=== PATIENT | male | born 1945 | race Caucasian/White ===

== ENCOUNTER 2023-09-28 17:54 | Inpatient (IN) | payer MEDICARE, OTHER ==
[~2023-09-28] VITALS: Ht 175.3 cm; Wt 67.1 kg
[2023-09-28 19:37] LABS: BASOPHILS % (AUTO) 0.2 % (0.0-2.0); HEMATOCRIT 45 % (39-51); HEMOGLOBIN 15.2 g/dL (13.5-17.5); LYMPHOCYTES # (AUTO) 0.7 K/uL (0.8-4.8); MEAN CORPUSCULAR HEMOGLOBIN 35 PG (26.0-33.0); MEAN CORPUSCULAR HGB CONC 34 g/dl (31.0-36.0); MEAN CORPUSCULAR VOLUME 103 fL (80-96); MONOCYTES # (AUTO) 0.3 K/uL (0.1-1.30); MONOCYTES % (AUTO) 2.8 % (2.0-12.0); NEUTROPHILS # (AUTO) 8.4 K/uL (1.8-8.9); PLATELET COUNT (AUTO) 217 K/uL (150-450); RED BLOOD CELL COUNT(AUTO) 4.38 MIL/uL (4.5-6.0); WHITE BLOOD COUNT (AUTO) 9.3 K/uL (4.3-11.0)
[2023-09-28 19:46] LABS: CARBON DIOXIDE 20 mmol/L (21-32); CHLORIDE 95 mmol/L (98-107); CREATININE 1.4 mg/dL (0.6-1.3); GLUCOSE 174 mg/dL (74-106); POTASSIUM 3.1 mmol/L (3.5-5.1); SODIUM SERUM 136 mmol/L (136-145); UREA NITROGEN, BLOOD 10 mg/dL (7-18)
[2023-09-28 20:01] LABS: CALCIUM, SERUM 9.9 mg/dL (8.5-10.1); NT-PRO BNP 67 pg/mL (0-125)
[2023-09-28] MEDS ORDERED: POTASSIUM CHLORIDE 20 MEQ POWDER PACKET ONE (20:43)
[2023-09-28] MEDS: POTASSIUM CHLORIDE 20 MEQ TAB.PRT.SR PO ONE (20:44)
[2023-09-28] MEDS: IV NS 0.9% 1,000 ML BAG IV ONE (20:44)
[2023-09-28] MEDS ORDERED: IV NS 0.9% 250 ML IV ONE (21:45)
[2023-09-28] MEDS ORDERED: IOHEXOL-350 100 ML VIAL IV ONE (21:45)
[2023-09-28] MEDS ORDERED: ACETAMINOPHEN 325 MG TABLET PO PRN (22:00)
[2023-09-28] MEDS ORDERED: MORPHINE SULFATE INJ 2 MG/ML DISP.SYRIN IV PRN (22:00)
[2023-09-28] MEDS ORDERED: MAGNESIUM HYDROXIDE 30 ML UDC PO PRN (22:00)
[2023-09-28] MEDS ORDERED: ONDANSETRON HCL/PF 4 MG/2 ML VIAL IV PRN (22:00)
[2023-09-28] MEDS ORDERED: Z GUARD REMEDY 4 OZ OINT TP PRN (22:00)
[2023-09-28] MEDS ORDERED: MAG HYDROX/AL HYDROX/SIMETH 30 ML UDC PO PRN (22:00)
[2023-09-28] MEDS ORDERED: ONDANSETRON HCL/PF 4 MG/2 ML VIAL IVP PRN (22:00)
[2023-09-28] MEDS ORDERED: DEXTROSE 50%-WATER 50 ML DISP.SYRIN IV PRN (23:00)
[2023-09-28] MEDS: ENOXAPARIN SODIUM 40 MG/0.4 ML DISP.SYRIN SQ SCH (23:11)
[2023-09-29] VITALS: BP 150/88; TEMP 98.8; O2SAT 97
[2023-09-29] MEDS: LORAZEPAM 1 MG TABLET PO PRN (00:04)
[2023-09-29 04:00] VITALS: BP 126/79; TEMP 99.1; O2SAT 93
[2023-09-29 06:29] LABS: BASOPHILS % (AUTO) 0.1 % (0.0-2.0); HEMATOCRIT 39 % (39-51); HEMOGLOBIN 13.6 g/dL (13.5-17.5); LYMPHOCYTES # (AUTO) 1.5 K/uL (0.8-4.8); LYMPHOCYTES % (AUTO) 23.4 % (20.0-44.0); MEAN CORPUSCULAR HEMOGLOBIN 36 PG (26.0-33.0); MEAN CORPUSCULAR HGB CONC 35 g/dl (31.0-36.0); MEAN CORPUSCULAR VOLUME 102 fL (80-96); MONOCYTES # (AUTO) 0.8 K/uL (0.1-1.30); MONOCYTES % (AUTO) 12.8 % (2.0-12.0); NEUTROPHILS # (AUTO) 4.1 K/uL (1.8-8.9); NEUTROPHILS % (AUTO) 63.7 % (43.0-81.0); PLATELET COUNT (AUTO) 189 K/uL (150-450); RED BLOOD CELL COUNT(AUTO) 3.78 MIL/uL (4.5-6.0); WHITE BLOOD COUNT (AUTO) 6.4 K/uL (4.3-11.0)
[2023-09-29 07:00] LABS: CALCIUM, SERUM 9.1 mg/dL (8.5-10.1); CREATININE 0.7 mg/dL (0.6-1.3); POTASSIUM 3.4 mmol/L (3.5-5.1)
[2023-09-29 07:05] LABS: ALBUMIN 3.1 g/dL (3.4-5.0); BILIRUBIN,DIRECT 0.3 mg/dL (0.0-0.2); BILIRUBIN,TOTAL 0.9 mg/dL (0.2-1.0); MAGNESIUM 2.1 mg/dL (1.8-2.4); PHOSPHORUS 3.1 mg/dL (2.5-4.9)
[2023-09-29 07:08] LABS: THYROID STIMULATING HORMONE 1.499 uIU/mL (0.358-3.74)
[2023-09-29] MEDS: BLOOD SUGAR DIAGNOSTIC 1 EACH STRIP IN SCH (07:43)
[2023-09-29 08:00] VITALS: BP 142/89; TEMP 98.6; O2SAT 96
[2023-09-29] MEDS: THIAMINE HCL 100 MG TABLET PO SCH (09:27)
[2023-09-29] MEDS: FOLIC ACID 1 MG TABLET PO SCH (09:27)
[2023-09-29] MEDS: ASPIRIN 81 MG TAB.CHEW PO SCH (09:27)
[2023-09-29 12:00] VITALS: BP 137/84; TEMP 98.2; O2SAT 98
[2023-09-29] MEDS: PANTOPRAZOLE 40 MG TABLET.DR PO SCH (12:18)
[2023-09-29] MEDS: POTASSIUM CHLORIDE 20 MEQ POWDER PACKET PO ONE (13:00)
[2023-09-29] MEDS ORDERED: TIMO5DRO35 OP (13:07)
[2023-09-29] MEDS ORDERED: ESCI10TA PO (13:07)
[2023-09-29] MEDS ORDERED: CHOL200059 PO (13:07)
[2023-09-29] MEDS ORDERED: HYDR-3980 PO (13:07)
[2023-09-29] MEDS ORDERED: DONE5TAB34 PO (13:07)
[2023-09-29] MEDS ORDERED: ROSU5TAB13 PO (13:07)
[2023-09-29] MEDS ORDERED: ALEN70TA80 PO (13:07)
[2023-09-29] MEDS ORDERED: TAMS-12 PO (13:07)
[2023-09-29] MEDS ORDERED: ICOS1CAP PO (13:07)
[2023-09-29] MEDS ORDERED: THIA100T70 PO (13:07)
[2023-09-29] MEDS ORDERED: MECL-159 PO (13:07)
[2023-09-29] MEDS ORDERED: DULA1.5P SQ (13:07)
[2023-09-29] MEDS ORDERED: OMEP1PAC5 PO (13:07)
[2023-09-29] MEDS ORDERED: FAMO40TA7 PO (13:07)
[2023-09-29] MEDS ORDERED: MEMA10TA PO (13:07)
[2023-09-29] MEDS ORDERED: LINA5TAB PO (13:07)
[2023-09-29] MEDS ORDERED: LIPA1CAP15 PO (13:07)
[2023-09-29] MEDS ORDERED: FOLI0.4T6 PO (13:07)
[2023-09-29] MEDS ORDERED: DICL50TA7 PO (13:07)
[2023-09-29] MEDS ORDERED: TADA10TA14 PO (13:07)
[2023-09-29] MEDS ORDERED: METF-440 PO (13:07)
[2023-09-29] MEDS ORDERED: OLME20TA13 PO (13:07)
[2023-09-29] MEDS ORDERED: LATA5DRO RIGHTEYE (13:07)
[2023-09-29] MEDS ORDERED: MONT10TA22 PO (13:07)
[2023-09-29 16:00] VITALS: BP 147/81; TEMP 98.8; O2SAT 99
[2023-09-29 20:00] VITALS: BP 136/73; TEMP 98.3; O2SAT 97
[2023-09-29] MEDS: INSULIN REGULAR, HUMAN 100 UNIT/ML 3 ML VIAL SQ PRN (22:00)
[2023-09-30] VITALS: BP 132/74; TEMP 98.2; O2SAT 98
[2023-09-30 04:00] VITALS: BP 128/72; TEMP 98; O2SAT 98
== END 2023-09-30 08:35 | disposition left against medical advice (07) | DRG 302 ==
LOC: ER 18:07 → TELE1 20:41
PROVIDERS: ADMIT Nurse Practitioner Acute Care; ATTEND Student in an Organized Health Care Education/Training Program
DX: I25.10 Atherosclerotic heart disease of native coronary artery without angina pectoris (principal); G93.41 Metabolic encephalopathy; N17.9 Acute kidney failure, unspecified; I27.82 Chronic pulmonary embolism; E46 Unspecified protein-calorie malnutrition; I12.9 Hypertensive chronic kidney disease with stage 1 through stage 4 chronic kidney disease, or unspecified chronic kidney disease; E11.22 Type 2 diabetes mellitus with diabetic chronic kidney disease; N18.9 Chronic kidney disease, unspecified; Z20.822 Contact with and (suspected) exposure to COVID-19; E78.5 Hyperlipidemia, unspecified; Z79.84 Long term (current) use of oral hypoglycemic drugs; Z79.85 Long-term (current) use of injectable non-insulin antidiabetic drugs; Z79.899 Other long term (current) drug therapy; Z79.83 Long term (current) use of bisphosphonates; E87.6 Hypokalemia; F03.90 Unspecified dementia, unspecified severity, without behavioral disturbance, psychotic disturbance, mood disturbance, and anxiety; F10.10 Alcohol abuse, uncomplicated; Y90.9 Presence of alcohol in blood, level not specified; N28.1 Cyst of kidney, acquired; Z53.29 Procedure and treatment not carried out because of patient's decision for other reasons; Z87.442 Personal history of urinary calculi; Z91.81 History of falling
CPT/HCPCS: 36415; 71045-TC; 76770-TC; 80048-TC; 80061-TC; 80076-TC; 82962-TC; 83690-TC; 83735-TC; 83880; 84100-TC; 84443-TC; 84484-TC; 85025-TC; 85378-TC; 93307-TC; 93970-TC; G0378; J1650; J1815; J7050; Q9967